=== PATIENT | female | born 1945 | race Caucasian/White ===

== ENCOUNTER 2016-06-20 07:55 | Day surgery (SDC) | payer MEDICARE ==
[~2016-06-20] VITALS: Ht 172.7 cm; Wt 77.1 kg
[~2016-06-20 07:55] MED LIST: 0.9% Sodium Chloride 1,000 ML IV SCH; BLAC160C PO; BUPR75TA10 PO; CITA40TA13 PO; DIPH25CA6 PO; ESCI10TA52 PO; GLUC-210 PO; LETR2.5T4 PO; NPR500T PO; Sodium Chloride LOK Flush 10 mL Syringe IV PRN; TRAZ-115 PO; fentaNYL-PF 50 mCg/mL 2 mL Inj IVPUSH PRN
[2016-06-20] MEDS ORDERED: HYDR25TA4 PO (08:22)
[2016-06-20] MEDS ORDERED: [UNRECOGNIZED DRUG - CODE] PO (08:22)
[2016-06-20] MEDS ORDERED: OMEP20CA11 PO (08:22)
[2016-06-20 08:41] VITALS: BP 122/69; PULSE 70; O2SAT 95
[2016-06-20 09:37] VITALS: BP 107/65; PULSE 66; RESP 14; O2SAT 94
[2016-06-20 09:46] VITALS: BP 112/58; PULSE 65; RESP 14; O2SAT 93
[2016-06-20 09:55] VITALS: BP 121/57; PULSE 67; RESP 14; O2SAT 98
--- NOTE | 2016-06-20 10:07 | ENDO ---
[address] [address] ENDOSCOPY PROCEDURE PATIENT: MARK MONAE : 1945 MR#: [id number] ADMIT: 06/20/2016 JOB ID: [id number] PROCEDURE: Colonoscopy. INDICATION: Screening. ASA CLASSIFICATION: 1. MALLAMPATI SCORE: 1. MEDICATIONS: Please see nurse's report for details regarding dosages of Versed and fentanyl. INSTRUMENT USED: [id number]. PREPARATION QUALITY: Fair. PROCEDURE DETAILS: After informed consent was obtained, the patient was brought to the GI suite, where she was placed on oxygen via nasal cannula and monitored with continuous pulse oximeter, telemetry, and blood pressure monitoring. A time-out was performed. Then, she was placed in a left lateral decubitus position and medications were administered for sedation. A digital rectal exam was performed which was unremarkable. The colonoscope was then inserted into the rectum and advanced under direct visualization to the cecum, which was identified by the presence of the ileocecal valve and appendiceal orifice. Once the cecum was reached, the colonoscope was withdrawn back to the rectum as the mucosa and lumen were examined. In the rectum, retroflexion was performed. Following retroflexion, remaining air in the rectum was suctioned, and procedure was completed. FINDINGS: Throughout the left side of the colon were scattered diverticula. Otherwise normal exam from rectum to cecum. IMPRESSION: Left-sided diverticulosis. RECOMMENDATIONS: 1. Repeat colonoscopy in 10 years, sooner if symptoms should dictate. 2. Fiber rich diet. COMPLICATIONS: None. ESTIMATED BLOOD LOSS: 0.
[2016-08-10] MEDS ORDERED: T2T PO (14:12)
== END 2016-06-20 23:59 | disposition home or self-care (01) ==
LOC: END 07:55
PROVIDERS: ATTEND Internal Medicine Gastroenterology
DX: Z12.11 Encounter for screening for malignant neoplasm of colon (principal); K57.30 Diverticulosis of large intestine without perforation or abscess without bleeding; M15.9 Polyosteoarthritis, unspecified; L30.1 Dyshidrosis [pompholyx]; K21.9 Gastro-esophageal reflux disease without esophagitis; F32.9 Major depressive disorder, single episode, unspecified
CPT/HCPCS: G0121; J2250; J7030